=== PATIENT | male | born 1950 | race Caucasian/White ===

== ENCOUNTER 2023-12-27 14:12 | Emergency (ER) | payer MEDICARE, SELFPAY ==
[2023-12-27 14:24] VITALS: BP 113/56; PULSE 87; RESP 18; TEMP 36.3; O2SAT 99
--- NOTE | 2023-12-27 14:48 | ED.SKABFB ---
HPI - Skin/Abscess/Foreign Bdy General Chief complaint: Skin/Abscess/Foreign Body Stated complaint: left nostril irritation Source: patient, RN notes reviewed and old records reviewed Mode of arrival: ambulatory Limitations: no limitations History of Present Illness HPI narrative: Patient presents with complaints of pain and swelling to the inside of the left nostril. He reports that about a week ago he was blowing his nose quite a bit, says that nasal drainage stopped, but now he has left nostril pain. He reports that he has noticed increased swelling over the past several days. Now reports it feels as though it is ?blocked?. He has been using Neosporin on the affected nostril, no relief. He denies any fever, chills, sweats. Denies other injury and trauma. Voices no other concerns or complaints at this time Related Data Home Medications Medication Instructions Recorded Confirmed cholecalciferol (vitamin D3) 50 50 mcg PO DAILY 11/01/23 12/27/23 mcg (2,000 unit) capsule mecobalamin (vitamin B12) 1,000 1,000 mcg PO DAILY 11/01/23 12/27/23 mcg chewable tablet Allergies Allergy/AdvReac Type Severity Reaction Status Date / Time No Known Allergies Allergy Verified 12/27/23 14:14 Review of Systems Review of Systems: All systems reviewed & are unremarkable except as noted in HPI and below Constitutional: Constitutional: Reports no additional constitutional complaints ENT: Reports system reviewed and no additional complaints, except as documented and Reports other (Nose pain) Cardiovascular: Cardiovascular: Reports no additional cardiovascular complaints Respiratory: Respiratory: Reports no additional respiratory complaints Gastrointestinal: Gastrointestinal: Reports no additional gastrointestinal complaints [facility] Past Medical History Medical History Afib Arthritis BPH (benign prostatic hyperplasia) Colon cancer High cholesterol History of colon cancer Sleep apnea Surgical History Surgical History History of left knee replacement History of right knee joint replacement Family History Family History Mother Cancer Father Heart disease Hypertension Social History Social History Smoking status: Former smoker Tobacco type: cigarettes Second hand tobacco smoke exposure: Yes Alcohol intake: never Substance use: never Do You Feel Safe in your Home?: Yes Lack of Transportation: No Lack of Food: Never True Current Housing: I Have Housing Concerned About Future Housing: No Difficulty Paying Gas/Electric Bills: No Difficulty Paying for Meds: No Currently Unemployed: No Education: High School Diploma/GED Difficulty w/ Childcare or Family Care: No Living arrangements: with family Occupation/Education: retired Gender identity (if verbalized by the patient): Male Sexual Orientation (if Verbalized by the Patient): Straight or Heterosexual Spiritual care concerns: No Agree to blood products: Yes Comments At the time of my signature, I reviewed and agree with the nursing past medical, surgical, social, and family history. There is no relevant family history pertinent to the patient complaint. Exam Const: General: cooperative, no acute distress, alert and awake Orientation/consciousness: oriented to person, oriented to place and oriented to time HENMT: Head: normal to inspection Face/Nose/Sinus: No nasal discharge present and Abnormal mucous membranes and turbinates present other (Left side with significant swelling consistent with cellulitis) Mouth: Yes moist mucous membranes Resp: Effort & Inspection: normal respiratory effort and able to speak in complete sentences Auscultation: clear to auscultation bilaterally, no crackles, no rales, no rhonchi and no wheezes Cardio: Palpation: normal PMI Rate: regular rate Rhythm: regular rhythm Heart sounds: S1 normal heart sound present and S2 normal heart sound present Neuro: General: oriented to person, oriented to place and oriented to time Cranial nerves: Yes CN's II-XII intact bilaterally Psych: Appearance: grossly normal Thought process: Normal thought process present Insight: Good insight present (Psych) Judgement: Good judgement present (Psych) Course Course Level of Care: Express Care Visit Vital Signs Vital signs: Vital Signs Temperature 97.3 F L 12/27/23 14:24 Pulse Rate 87 12/27/23 14:24 Respiratory Rate 18 12/27/23 14:24 Blood Pressure 113/56 L 12/27/23 14:24 Pulse Oximetry 99 12/27/23 14:24 Oxygen Delivery Room Air 12/27/23 14:24 Temperature 97.3 F L 12/27/23 14:24 Pulse Rate 87 12/27/23 14:24 Respiratory Rate 18 12/27/23 14:24 Blood Pressure 113/56 L 12/27/23 14:24 Pulse Oximetry 99 12/27/23 14:24 Oxygen Delivery Room Air 12/27/23 14:24 Reviewed MDM - Skin/Abscess/Foreign Bdy MDM Narrative Medical decision making narrative: Physical consistent with cellulitis, limited to the left nostril. Denies fever, chills, sweats. Nontoxic appearing. Start p.o. antibiotics. Follow with primary care provider. Emergency department for new or worse symptoms. Discharge instructions reviewed with patient, as well as provided in writing per nursing staff. The instructions also include specific and strict return/GO TO THE ER as well as f/u information. All questions have been answered, and the patient deny any further questions with discharge and discharge plan. Some parts of this dictation were generated by voice recognition software and may contain typographical and/or grammatical inaccuracies. Differential Diagnosis Differential diagnosis: Likely abscess of skin or subcutaneous tissue, cellulitis and insect bites Medical Records Attestation: I reviewed the patient's medical records. Discharge Plan Discharge Clinical Impression: Cellulitis Qualifiers: Site of cellulitis: face Qualified Code(s): L03.211 - Cellulitis of face Patient Disposition: Home, Self-Care Condition: Stable Instructions: Antibiotic Form, Cellulitis (ED) Additional Instructions: Take medications as prescribed. Follow with primary care provider. Emergency department for new or worsening symptoms. Please call the doctor that manages your Coumadin, antibiotics can affect your INR Patient Language: Gabonese Prescriptions: New doxycycline hyclate 100 mg tablet 100 mg PO BID 10 Days Qty: 20 0RF No Action cholecalciferol (vitamin D3) 50 mcg (2,000 unit) capsule 50 mcg PO DAILY mecobalamin (vitamin B12) 1,000 mcg tablet,chewable 1,000 mcg PO DAILY amlodipine 5 mg tablet 5 mg PO DAILY Qty: 90 1RF atorvastatin 20 mg tablet 20 mg PO DAILY Qty: 90 1RF finasteride 5 mg tablet 5 mg PO DAILY Qty: 90 1RF lisinopril 5 mg tablet 5 mg PO DAILY Qty: 90 1RF montelukast 10 mg tablet 10 mg PO DAILY Qty: 90 1RF pantoprazole 40 mg tablet,delayed release (DR/EC) 40 mg PO QAM Qty: 90 1RF tamsulosin 0.4 mg capsule 0.4 mg PO DAILY Qty: 90 1RF warfarin 5 mg tablet 5 mg PO DAILY Qty: 30 0RF gabapentin 600 mg tablet 1,200 mg PO QHS Qty: 90 1RF sildenafil 100 mg tablet 100 mg PO DAILY PRN (Reason: sexual activity) Qty: 10 0RF Rx Instructions: administer 30 minutes to 4 hours before activity diclofenac sodium [Arthritis Pain (diclofenac)] 1 % gel See Rx Instructions topical QID PRN (Reason: arthritis) Qty: 100 1RF Rx Instructions: topically four times daily PRN; 2 grams to the upper extremities as needed 4 grams to the lower extremities as needed max dose 32 grams daily total 16 grams per lower joint max dose 8 grams per upper joint Follow-up/Referrals: Jessica Campa APRN [Primary Care Provider] - 2 Weeks Time of Disposition: 14:51
== END 2023-12-27 14:57 | disposition home or self-care (01) ==
PROVIDERS: Emergency Provider Nurse Practitioner Family; PCP Nurse Practitioner Family
DX: J34.0 Abscess, furuncle and carbuncle of nose (principal); I48.91 Unspecified atrial fibrillation; N40.0 Benign prostatic hyperplasia without lower urinary tract symptoms; M19.90 Unspecified osteoarthritis, unspecified site; E78.00 Pure hypercholesterolemia, unspecified; Z85.038 Personal history of other malignant neoplasm of large intestine; Z96.653 Presence of artificial knee joint, bilateral
CPT/HCPCS: 99213; G0463

== ENCOUNTER 2025-01-08 00:20 | Day surgery (SDC) | payer MEDICARE, SELFPAY ==
[2025-01-01 15:43] VITALS: BMI 28.6
--- NOTE | 2025-01-01 16:04 | PC.NURSE ---
Spoke with PATIENT regarding medication WARFARIN. PATIENT verbalizes understanding that the last dose is to be taken on 01/03/2025 and the Endoscopist will instruct them when to restart after the procedure.
--- OUTSIDE RECORDS SUMMARY | 2025-01-08 00:22 | XMS_ITS | Clinical Summary ---
Author Organization [facility] [address] Address [address] [place] [id number] Care Team Providers Care Dock Supervisor Name Role Phone Jessica Campa NP Primary Care Provider [phone] Allergies No known active allergies Medications pantoprazole DR (PROTONIX) 40 mg EC tablet Take 1 tablet (40 mg total) by mouth daily Active lisinopriL (PRINIVIL,ZEST RIL) 5 mg tablet Take 1 tablet (5 mg total) by mouth daily Active tamsulosin (FLOMAX) 0.4 mg extended release capsule 1 capsule (0.4 mg total) Active cholecalcifero l (VITAMIN D-3) 2000 unit capsule 1 capsule (2,000 Units total) Active cyanocobalamin (Vitamin B-12) 1,000 mcg tabletIndicati ons:Prevention of Vitamin B12 Deficiency Take 1 tablet (1,000 mcg total) by mouth daily Active gabapentin (NEURONTIN) 600 mg tablet Take 1 tablet (600 mg total) by mouth 2 (two) times a day Active atorvastatin (LIPITOR) 20 mg tablet Take 1 tablet (20 mg total) by mouth daily Active amLODIPine (NORVASC) 5 mg tablet Take 1 tablet (5 mg total) by mouth daily Active finasteride (PROSCAR) 5 mg tablet Take 1 tablet (5 mg total) by mouth daily Active warfarin (COUMADIN) 5 mg tablet TAKE 1 TABLET EVERY DAY 90 tablet 3 5 Active warfarin (COUMADIN) 5 mg tablet TAKE 1 TABLET EVERY DAY 90 tablet 5 12/22/19 25 Discontinued Active Problems Problem Noted Date Diagnosed Date Permanent atrial fibrillation 01/27/2024 Encounters Date Type Department Care Team Description 01/03/2025 Telephone [facility] [address] [place] [address] [place] [phone] Kamar Mckenzie MD 12/31/2024 Anticoagulation Visit [facility] [address] [place] [address] [place] [phone] Mojgan Carlin, RN 12/17/2024 Anticoagulation Visit [facility] [address] [place] [address] [place] [phone] Mojgan Carlin, RN 12/04/2024 Anticoagulation Visit [facility] [address] [place] [address] [place] [phone] Mojgan Carlin, RN 11/19/2024 Anticoagulation Visit [facility] [address] [place] [address] [place] [phone] Mojgan Carlin, [place] 11/05/2024 Anticoagulation Visit [facility] [address] [place] [address] [place] [phone] Mojgan Calrin, [place] 10/18/2024 Anticoagulation Visit [facility] [address] [place] [phone] Grace Marshall RN 10/10/2024 Anticoagulation Visit [facility] [address] [place] [address] [place] [phone] Soha Mai RN 10/10/2024 Telephone [facility] [address] [place] [address] [place] [phone] Kamar Mckenzie MD from Last 3 Months Surgical History Surgery Date Site/Laterality Comments COLON SURGERY REPLACEMENT TOTAL KNEE Bilateral Medical History Medical History Date Comments Atrial fibrillation (HCC) Colon cancer (HCC) Family History Medical History Relation Name Comments Heart disease Father Breast cancer Mother Dementia Mother Relation Name Status Comments Father Mother Social History Tobacco Use Types Packs/Day Years Used Date Smoking Tobacco: Former Cigarettes Smokeless Tobacco: Never Tobacco Cessation:Counseling Given: Not Answered Sex and Gender Information Value Date Recorded Sex Assigned at Not on file Legal Sex Male 11:30 AM CDT Gender Identity Not on file Sexual Orientation Not on file Last Filed Vital Signs Vital Sign Reading Time Taken Comments Blood Pressure 130/80 08/02/2024 1:23 PM CDT Pulse 87 08/02/2024 1:23 PM CDT Temperature - - Respiratory Rate - - Oxygen Saturation 99% 08/02/2024 1:23 PM CDT Inhaled Oxygen Concentration - - Weight 89.4 kg (197 lb) 08/02/2024 1:23 PM CDT Height 175.3 cm (5' 9) 08/02/2024 1:23 PM CDT Body Mass Index 29.09 08/02/2024 1:23 PM CDT Plan of Treatment Health Maintenance Due Date Last Done Comments Colon Cancer Screening-Colonoscopy 1950 Depression Screening 1950 Fall Risk Assessment 1950 Hepatitis C Screening 1950 DTaP/Tdap/Td Vaccine (1 - Tdap) 1962 Hepatitis B Screening 1969 Pneumococcal vaccine 65+ (1 of 1 - PCV) 2001 Zoster Vaccine (1 of 2) 2001 Abdominal Aortic Aneurysm (AAA) Screen 01/31/2016 Well Visit 65+ 01/31/2016 Influenza Vaccine (#1) 2024 Procedures Procedure Name Priority Date/Time Associated Diagnosis Comments PROTIME-INR Routine 12/31/2024 10:32 AM HONEY EXTRACTOR Permanent atrial fibrillation (HCC) PROTIME-INR Routine 12/17/2024 10:29 AM HONEY EXTRACTOR Permanent atrial fibrillation (HCC) PROTIME-INR Routine 12/03/2024 10:38 AM CDT Permanent atrial fibrillation (HCC) PROTIME-INR Routine 11/19/2024 10:41 AM CDT Permanent atrial fibrillation (HCC) PROTIME-INR Routine 11/03/2024 10:34 AM CDT Permanent atrial fibrillation (HCC) PROTIME-INR Routine 10/18/2024 11:14 AM CDT Permanent atrial fibrillation (HCC) from Last 3 Months Results * (ABNORMAL) Protime-INR (12/31/2024 10:32 AM HONEY EXTRACTOR) INR 1.8(H) [facility] Comment: Reference Range 0.9-1.1 Moderate-intensity Warfarin Therapy 2.0-3.0 Higher-intensity Warfarin Therapy 3.0-4.0 PT 18.8(H) 9.0 - 11.5 sec [facility] Comment: For additional information, please refer to [email or web address]/[email or web address] (This link is being provided for informational/ educational purposes only.) Blood 12/31/2024 10:3 2 AM HONEY EXTRACTOR 12/31/2024 10:32 AM HONEY EXTRACTOR Kamar Mckenzie MD LAB BLOOD ORDERABLES Fin al Result Performing Organization Address [facility] Co de Phone Number [facility] [address] [place] [address] * (ABNORMAL) Protime-INR (12/17/2024 10:29 AM HONEY EXTRACTOR) INR 2.7(H) [facility] Comment: Reference Range 0.9-1.1 Moderate-intensity Warfarin Therapy 2.0-3.0 Higher-intensity Warfarin Therapy 3.0-4.0 PT 27.1(H) 9.0 - 11.5 sec [facility] Comment: For additional information, please refer to [email or web address]/[email or web address] (This link is being provided for informational/ educational purposes only.) Blood 12/17/2024 10:2 9 AM HONEY EXTRACTOR 12/17/2024 10:29 AM HONEY EXTRACTOR Narrative [facility] - 12/17/2024 3:31 PM HONEY EXTRACTOR FASTING:NO FASTING: NO Kamar Mckenize MD LAB BLOOD ORDERABLES Fin al Result Performing Organization Address City/[facility]/ZIP Co de Phone Number [facility] [address] [place] [address] * (ABNORMAL) Protime-INR (12/03/2024 10:38 AM CDT) INR 3.5(H) [facility] Comment: Reference Range 0.9-1.1 Moderate-intensity Warfarin Therapy 2.0-3.0 Higher-intensity Warfarin Therapy 3.0-4.0 PT 34.9(H) 9.0 - 11.5 sec [facility] Comment: For additional information, please refer to [email or web address]/[email or web address] (This link is being provided for informational/ educational purposes only.) Blood 12/03/2024 10:3 8 AM CDT 12/03/2024 10:38 AM CDT Kamar Mckenzie MD LAB BLOOD ORDERABLES Fin al Result Performing Organization Address [facility] de Phone Number [facility] [address] [place] [address] * (ABNORMAL) Protime-INR (11/19/2024 10:41 AM CDT) INR 3.8(H) [facility] Comment: Reference Range 0.9-1.1 Moderate-intensity Warfarin Therapy 2.0-3.0 Higher-intensity Warfarin Therapy 3.0-4.0 PT 37.8(H) 9.0 - 11.5 sec [facility] Comment: For additional information, please refer to [email or web address]/[email or web address] (This link is being provided for informational/ educational purposes only.) Blood 11/19/2024 10:4 1 AM CDT 11/19/2024 10:41 AM CDT Kamar Mckenzie MD LAB BLOOD ORDERABLES Fin al Result Performing Organization Address [facility] de Phone Number [facility] [address] [place] [address] * (ABNORMAL) Protime-INR (11/03/2024 10:34 AM CDT) INR 2.4(H) [facility] Comment: Reference Range 0.9-1.1 Moderate-intensity Warfarin Therapy 2.0-3.0 Higher-intensity Warfarin Therapy 3.0-4.0 PT 24.3(H) 9.0 - 11.5 sec [facility] Comment: For additional information, please refer to [email or web address]/[email or web address] (This link is being provided for informational/ educational purposes only.) Blood 11/03/2024 10:3 4 AM CDT 11/03/2024 10:35 AM CDT Narrative [facility] - 11/03/2024 10:58 PM CDT FASTING:YES FASTING: YES Kamar Mckenzie MD LAB BLOOD ORDERABLES Fin al Result Performing Organization Address City/[facility] Co de Phone Number [facility] [address] [place] [address] * (ABNORMAL) Protime-INR (10/18/2024 11:14 AM CDT) INR 3.3(H) [facility] Comment: Reference Range 0.9-1.1 Moderate-intensity Warfarin Therapy 2.0-3.0 Higher-intensity Warfarin Therapy 3.0-4.0 PT 32.4(H) 9.0 - 11.5 sec [facility] Comment: For additional information, please refer to [email or web address] (This link is being provided for informational/ educational purposes only.) Blood 10/18/2024 11:1 4 AM CDT 10/18/2024 11:15 AM CDT Narrative [facility] - 10/18/2024 3:07 PM CDT AN UPDATE OR CORRECTION HAS BEEN MADE TO NAME Kamar Mckenzie MD LAB BLOOD ORDERABLES Fin al Result [facility] [address] [place] [address] from Last 3 Months Insurance [employer] MEDICARE PPO Care Teams Dock Supervisor Relationship Specialty Start Date End Date Jessica Campa NP [address] [facility] [address] [place] [address] PCP - General Nurse Practitioner 12/07/23
[2025-01-08 11:43] VITALS: BP 135/82; PULSE 51; RESP 18; TEMP 36.1; O2SAT 100; BMI 28.5
[2025-01-08] MEDS: LACTATED RINGERS 1,000 ML 150 ML IV CONT (12:00)
--- NOTE | 2025-01-08 12:14 | WPDANESEPPF ---
Anes - Initial Pre Proc Eval Procedure: Operation Date: 01/08/25 13:00 Proposed Procedures p Screening Colonoscopy - Demetrsi Kennedy MD Date/Time: 01/08/25 12:14 Surgeon: Demetris Kennedy MD Pre Op Diagnosis: Personal history of other malignant neoplasm of la Patient Data Age: 74 Gender: M Height: 1.75 m Weight: 87.7 kg Last Vital Signs Temp 97 F L 01/08/25 11:43 Pulse 51 L 01/08/25 11:43 Resp 18 01/08/25 11:43 BP 135/82 01/08/25 11:43 Pulse Ox 100 01/08/25 11:43 O2 Del Method Room Air 01/08/25 11:43 Allergies Allergy/AdvReac Type Severity Reaction Status Date / Time No Known Allergies Allergy Verified 01/08/25 11:41 Home Medications ?Medication ?Instructions ?Recorded ?Confirmed ?Type cholecalciferol (vitamin D3) 50 50 mcg PO DAILY 11/01/23 01/08/25 History mcg (2,000 unit) capsule mecobalamin (vitamin B12) 1,000 1,000 mcg PO DAILY 11/01/23 01/08/25 History mcg chewable tablet sildenafil 100 mg tablet 100 mg PO DAILY PRN sexual 11/01/23 01/01/25 Rx activity #10 tabs ferrous sulfate 325 mg (65 mg See Rx Instructions .Route 06/28/24 01/08/25 Rx iron) tablet,delayed release .COMPLEX #30 tabs duloxetine 30 mg capsule,delayed 30 mg PO DAILY #90 caps 10/08/24 01/01/25 Rx release atorvastatin 20 mg tablet 20 mg PO DAILY #90 tabs 11/14/24 01/08/25 Rx gabapentin 600 mg tablet See Rx Instructions .Route 12/17/24 01/08/25 Rx .COMPLEX #180 tabs amlodipine 5 mg tablet 5 mg PO DAILY #90 tabs 12/21/24 01/08/25 Rx finasteride 5 mg tablet 5 mg PO DAILY #90 tabs 12/31/24 01/08/25 Rx lisinopril 5 mg tablet 5 mg PO DAILY #90 tabs 12/31/24 01/08/25 Rx montelukast 10 mg tablet 10 mg PO DAILY #90 tabs 12/31/24 01/08/25 Rx pantoprazole 40 mg tablet,delayed 40 mg PO QAM #90 tabs 12/31/24 01/08/25 Rx release tamsulosin 0.4 mg capsule 0.4 mg PO DAILY #90 caps 12/31/24 01/08/25 Rx warfarin 5 mg tablet 2.5 mg PO .MWF 01/01/25 01/08/25 History Patient hx anesthesia problems: none Family hx anesthesia problems: none Results Review: All pre-operative results and documents have been reviewed as part of the pre-operative evaluation. [facility] Past Medical History Medical History Sleep apnea BPH (benign prostatic hyperplasia) History of colon cancer High cholesterol Afib Colon cancer Arthritis Surgical History Surgical History History of left knee replacement History of right knee joint replacement Family History Family History Mother Cancer Father Heart disease Hypertension Social History Social History Years smoked: 32 Smoking status: Former smoker Tobacco type: cigarettes Second hand tobacco smoke exposure: Yes Alcohol intake: current Substance use: never Do You Feel Safe in your Home?: Yes Lack of Transportation: No Lack of Food: Never True Current Housing: I Have Housing Concerned About Future Housing: No Difficulty Paying Gas/Electric Bills: No Difficulty Paying for Meds: No Currently Unemployed: No Education: High School Diploma/GED Difficulty w/ Childcare or Family Care: No Living arrangements: with family Occupation/Education: retired Gender identity (if verbalized by the patient): Male Sexual Orientation (if Verbalized by the Patient): Straight or Heterosexual Spiritual care concerns: No Agree to blood products: Yes Anes - Eval Final PreProcedure Day of Procedure 01/08/25 12:14 Patient weight: normal Lungs: normal air movement Airway: Mallampati scale class II Neurological: alert and oriented Last oral intake: >/= 8 hours ASA classification: III Emergent: no Anesthetic plan: proceed Anesthesia type and monitoring: general GIVS and standard monitoring Results Review: All pre-operative results and documents have been reviewed as part of the pre-operative evaluation. HTN, hyperlipdemia, VIKI on CPAP, chr afib and AC on hold. Informed Consent: The patient's anesthetic plan and its attendant risks and benefits were discussed with the patient/family/POA. Questions were solicited and answers provided to the satisfaction of the patient/family/POA.
--- NOTE | 2025-01-08 12:40 | PM.HPGS ---
History of Present Illness History of Present Illness Consent: Risks, benefits, and alternatives have been discussed and questions answered. Patient agrees to proceed with procedure. Chief complaint: Personal history of other malignant neoplasm of la Narrative: Cheo Vega is a 74 year old male with colon cancer about 9 years ago s/p surgery, last colonoscopy 3 years ago Review of Systems Review of Systems: All systems reviewed & are unremarkable except as noted in HPI and below PMFSH Past Medical History Medical History Sleep apnea BPH (benign prostatic hyperplasia) History of colon cancer High cholesterol Afib Colon cancer Arthritis Surgical History Surgical History History of left knee replacement History of right knee joint replacement Family History Family History Mother Cancer Father Heart disease Hypertension Social History Social History Years smoked: 32 Smoking status: Former smoker Tobacco type: cigarettes Second hand tobacco smoke exposure: Yes Alcohol intake: current Substance use: never Do You Feel Safe in your Home?: Yes Lack of Transportation: No Lack of Food: Never True Current Housing: I Have Housing Concerned About Future Housing: No Difficulty Paying Gas/Electric Bills: No Difficulty Paying for Meds: No Currently Unemployed: No Education: High School Diploma/GED Difficulty w/ Childcare or Family Care: No Living arrangements: with family Occupation/Education: retired Gender identity (if verbalized by the patient): Male Sexual Orientation (if Verbalized by the Patient): Straight or Heterosexual Spiritual care concerns: No Agree to blood products: Yes Meds Home Medications and Allergies Home Medications ?Medication ?Instructions ?Recorded ?Confirmed ?Type cholecalciferol (vitamin D3) 50 50 mcg PO DAILY 11/01/23 01/08/25 History mcg (2,000 unit) capsule mecobalamin (vitamin B12) 1,000 1,000 mcg PO DAILY 11/01/23 01/08/25 History mcg chewable tablet sildenafil 100 mg tablet 100 mg PO DAILY PRN sexual 11/01/23 01/01/25 Rx activity #10 tabs ferrous sulfate 325 mg (65 mg See Rx Instructions .Route 05/15/25 11/25/25 Rx iron) tablet,delayed release .COMPLEX #30 tabs duloxetine 30 mg capsule,delayed 30 mg PO DAILY #90 caps 10/08/24 01/01/25 Rx release atorvastatin 20 mg tablet 20 mg PO DAILY #90 tabs 11/14/24 01/08/25 Rx gabapentin 600 mg tablet See Rx Instructions .Route 12/17/24 01/08/25 Rx .COMPLEX #180 tabs amlodipine 5 mg tablet 5 mg PO DAILY #90 tabs 12/21/24 01/08/25 Rx finasteride 5 mg tablet 5 mg PO DAILY #90 tabs 12/31/24 01/08/25 Rx lisinopril 5 mg tablet 5 mg PO DAILY #90 tabs 12/31/24 01/08/25 Rx montelukast 10 mg tablet 10 mg PO DAILY #90 tabs 12/31/24 01/08/25 Rx pantoprazole 40 mg tablet,delayed 40 mg PO QAM #90 tabs 12/31/24 01/08/25 Rx release tamsulosin 0.4 mg capsule 0.4 mg PO DAILY #90 caps 12/31/24 01/08/25 Rx warfarin 5 mg tablet 2.5 mg PO .MWF 01/01/25 01/08/25 History Allergies Allergy/AdvReac Type Severity Reaction Status Date / Time No Known Allergies Allergy Verified 01/08/25 11:41 Vital Signs Vital Signs - 24 hr 01/08/25 11:43 Temperature 97 F L Pulse Rate 51 L Respiratory Rate 18 Blood Pressure 135/82 Pulse Oximetry 100 Oxygen Delivery Room Air Exam Const: General: comfortable and no acute distress HENMT: Face/Nose/Sinus: Normal nares present Eyes: General: appearance normal, both eyes and all related structures Resp: Auscultation: clear to auscultation bilaterally Cardio: Rate: regular rate Rhythm: regular rhythm GI: Inspection: non-distended GI Palp: Yes Soft to palpation Extrem: General: normal to inspection Psych: Mental Status: mental status grossly normal Assessment and Plan Assessment and plan (1) History of colon cancer: Code(s): Z85.038 - Personal history of other malignant neoplasm of large intestine Status: Acute Assessment and Plan: colonoscopy
--- NOTE | 2025-01-08 13:01 | S_PTH ---
PATIENT: Cheo Vega LOC: [place]#:[id number] AGE/SX: 74/M ROOM: RE01/08/[address]: Demetris Kennedy MD : 1950 BED: DIS: 01/08/2025 SPEC #: [id number] RECD: 01/08/25 13:17 STATUS: WILMER AGUIRRE #: [id number] MACARIO: 01/08/25 13:[address]: Demetris Kennedy DEPT: [facility] Surgical RECD BY: Flavia Sunshine ENTERED: 01/08/25 13:18 SP TYPE: Surgical OTHR DR: Jessica Campa APRN Tissues: A - Colon Polypectomy B - Colon Polypectomy Procedures: Hematoxylin and Eosin Stain Gross and Microscopic Level 4
[2025-01-08 13:04] VITALS: BP 128/65; PULSE 66; RESP 17; O2SAT 100
[2025-01-08 13:14] VITALS: PULSE 56; RESP 21; O2SAT 100
== END 2025-01-08 13:30 | disposition home or self-care (01) ==
PROVIDERS: PCP Nurse Practitioner Family; Referring Provider Nurse Practitioner Family; Visit Provider Internal Medicine Gastroenterology
PROC: 0DJD8ZZ Inspection of Lower Intestinal Tract, Via Natural or Artificial Opening Endoscopic (ICD-10-PCS; CPT 45378; principal; 2025-01-08 13:00)
DX: Z12.11 Encounter for screening for malignant neoplasm of colon (principal); D12.3 Benign neoplasm of transverse colon; D12.5 Benign neoplasm of sigmoid colon; K64.8 Other hemorrhoids; I10 Essential (primary) hypertension; N40.0 Benign prostatic hyperplasia without lower urinary tract symptoms; E78.00 Pure hypercholesterolemia, unspecified; I48.91 Unspecified atrial fibrillation; G47.33 Obstructive sleep apnea (adult) (pediatric); M19.90 Unspecified osteoarthritis, unspecified site; Z79.01 Long term (current) use of anticoagulants; Z99.89 Dependence on other enabling machines and devices; Z98.890 Other specified postprocedural states; Z98.0 Intestinal bypass and anastomosis status; Z90.49 Acquired absence of other specified parts of digestive tract; Z87.891 Personal history of nicotine dependence; Z85.038 Personal history of other malignant neoplasm of large intestine; Z80.9 Family history of malignant neoplasm, unspecified; Z82.49 Family history of ischemic heart disease and other diseases of the circulatory system
CPT/HCPCS: 45385; 88305; J2003; J2704; J7120